=== PATIENT | male | born 1955 | race Caucasian/White ===

== ENCOUNTER 2022-08-20 13:50 | Outpatient (CLI) | payer OTHER | END 2022-08-20 13:51 | disposition home or self-care (01) | LOC: MADRAD 13:50 | PROVIDERS: ATTEND Neurological Surgery | DX: M47.26 Other spondylosis with radiculopathy, lumbar region (principal); M46.06 Spinal enthesopathy, lumbar region; Z98.890 Other specified postprocedural states | CPT/HCPCS: 72100 ==

== ENCOUNTER 2024-09-05 08:50 | Emergency (ER) | payer OTHER ==
[2024-09-05] MEDS ORDERED: Azithromycin 500 MG VIAL ONE (09:32)
[2024-09-05] MEDS ORDERED: cefTRIAXone (ROCEPHIN) 2 GM VIAL ONE (09:32)
[2024-09-05] MEDS ORDERED: Sodium Chloride 0.9% 250 ML 250 ML ONE (09:33)
[2024-09-05] MEDS ORDERED: Sodium Chloride 0.9% 500 ML ONE (09:33)
[2024-09-05] MEDS ORDERED: Sodium Chloride 0.9% 100 ML ONE (09:33)
[2024-09-05 09:53] LABS: Anisocytosis SLIGHT = 6-15 cells (100X) (0-5/hpf); Band 7 % (5-11); Hematocrit 48.9 % (42.0-52.0); Hemoglobin 14.5 g/dL (14.0-18.0); Hypochromia SLIGHT = 6-15 cells (100X) (0-5/hpf); Lymphocytes 8 % (21-51); MDiff Complete? YES; Mean Corpuscular HGB CONC 29.6 g/dL (32.0-36.0); Mean Corpuscular Hemoglobin 25.3 pg (27.0-31.0); Mean Corpuscular Volume 85.3 fl (78.0-98.0); Monocytes 7 % (0-10); Neutrophil 77 % (42-75); Platelet Adequacy Comment Appears Adequate; Platelet Count 288 10x3/uL (130-400); RBC Distribution Width 15.8 % (11.5-14.5); Red Blood Cell (RBC) Count 5.73 mill/uL (4.70-6.10); White Blood Cell (WBC) Count 17.8 10x3/uL (4.8-10.8)
[2024-09-05 09:55] LABS: ALT (SGPT) 21 U/L (8-55); AST (SGOT) 16 U/L (5-34); Albumin 3.6 g/dL (3.4-4.8); Alkaline Phosphatase 59 U/L (40-110); Anion Gap 13 mmol/L (10-20); BUN (Urea Nitrogen) 17 mg/dL (8.4-25.7); Bilirubin, Total 0.5 mg/dL (0.2-1.2); Calc. Creatinine Clearance 0 mL/min (70-130); Calcium 9.2 mg/dL (7.8-10.44); Carbon Dioxide 25 mmol/L (23-31); Chloride 105 mmol/L (98-107); Estimated GFR 72; Globulin 2.6 g/dL (2.4-3.5); Glucose 118 mg/dL (80-115); Potassium 3.6 mmol/L (3.5-5.1); Protein, Total 6.2 g/dL (5.8-8.1); Sodium 139 mmol/L (136-145)
[2024-09-05 09:56] LABS: Troponin I 0.073 ng/mL (< 0.028)
[2024-09-05 10:25] LABS: Bilirubin Small (Negative); Blood, Urine Trace (Negative); Clarity Clear (Clear); Glucose, Urine (Dipstick) Negative (Negative); Ketone, Urine 15 mg/dL (Negative); Leukocyte Negative (Negative); Nitrite Negative (Negative); Protein, Urine (Dipstick) Negative (Neg-Trace); Urobilinogen 0.2 mg/dL (Less than 2)
[2024-09-05 10:41] LABS: Bacteria/HPF Rare-Few HPF (None Seen); CAUTI Indications for Culture Fever or rigors; RBC/HPF 0-3 HPF (0-3); Specific Gravity, Urine 1.026 (1.002-1.036); Squamous Epithelial 0-3 HPF (0-3); WBC/HPF 0-3 HPF (0-3)
[2024-09-05 10:42] LABS: Urine Culture Reflex No No
[2024-09-05] MEDS ORDERED: Acetaminophen 500 MG TAB ONE (11:07)
[2024-09-05] MEDS ORDERED: traMADol HCl 50 MG TAB ONE (11:07)
[2024-09-05 11:26] LABS: CO2 Tension (PvCO2) 37.8 mmHg (42.0-51.0)
[2024-09-05 11:27] LABS: Calcium, Ionized 1.17 mmol/L (1.15-1.33); Chloride 104 mmol/L (98-107); Hemoglobin - Calc 17.2 g/dL (14.0-18.0); Potassium 3.7 mmol/L (3.5-5.1); Sodium 138 mmol/L (138-145); T. Carbon Dioxide 27.1 mmol/L (22.0-28.0); vO2 Saturation-calc 99.4 % (60.0-85.0)
== END 2024-09-05 13:20 | disposition home or self-care (01) ==
LOC: MADERS 08:50
DX: J18.9 Pneumonia, unspecified organism (principal); I10 Essential (primary) hypertension; K21.9 Gastro-esophageal reflux disease without esophagitis; E78.5 Hyperlipidemia, unspecified; Z79.899 Other long term (current) drug therapy
CPT/HCPCS: 71046; 80053; 81001; 82330; 82803; 83605; 83880; 84484; 85025; 87040; 87400; 93005; 94760; 96365; J0456; J0696; J7030; J7050